=== PATIENT | female | born 1960 | race Caucasian/White ===

== ENCOUNTER 2025-01-11 04:58 | Observation (INO) | payer OTHER ==
[2025-01-11] VITALS (11 sets, daily range): BP systolic 128–172; BP diastolic 56–90
[~2025-01-11] VITALS: Ht 160 cm; Wt 76.8 kg
[2025-01-11] MEDS ORDERED: AMLODIPINE BESYL5 MG PO (06:46)
[2025-01-11] MEDS ORDERED: OMEP20ER PO (06:46)
[2025-01-11] MEDS ORDERED: METO100ER PO (06:46)
[2025-01-11] MEDS ORDERED: EZETIMIBE10 M6 PO (06:46)
[2025-01-11] MEDS ORDERED: ISOSORBIDE MONO30 MG (06:46)
[2025-01-11] MEDS ORDERED: NITROGLYCERIN0.4 M3 SL (06:47)
[2025-01-11] MEDS ORDERED: REPATHA SU140 MG/1 M SC (06:50)
[2025-01-11] MEDS ORDERED: ASPI81CH PO (06:51)
[2025-01-11] MEDS ORDERED: LEVSOD137 PO (06:52)
[2025-01-11] MEDS ORDERED: FENO160 PO (06:53)
[2025-01-11] MEDS ORDERED: Lactated Ringer's 1,000 ML IV SCH (07:00)
[2025-01-11] MEDS ORDERED: Ondansetron HCl 2 MG / ML 2ML Vial IV PRN (07:05)
[2025-01-11] MEDS ORDERED: Nitroglycerin 0.4 MG SUBL SL PRN (07:05)
[2025-01-11] MEDS ORDERED: Acetaminophen 325 MG TABLET PO PRN (07:05)
[2025-01-11 07:19] LABS: BASOPHILS ABSOLUTE AUTO 0.11 K/mm3 (0.00-0.23); BASOPHILS PERCENT AUTO 1 % (0-2); EOSINOPHILS ABSOLUTE AUTO 0.22 K/mm3 (0.00-0.68); EOSINOPHILS PERCENT AUTO 3 % (0-6); Hematocrit 40.1 % (33.0-51.0); Hemoglobin 13.2 g/dL (11.5-16.0); IMMATURE GRAN ABSOLUTE AUTO 0.14 K/mm3 (0.00-0.10); IMMATURE GRAN PERCENT AUTO 2 % (0-1); LYMPHOCYTES ABSOLUTE AUTO 2.22 K/mm3 (0.84-5.20); LYMPHOCYTES PERCENT AUTO 27 % (21-46); MONOCYTES ABSOLUTE AUTO 0.83 K/mm3 (0.16-1.47); MONOCYTES PERCENT AUTO 10 % (4-13); Mean Corpuscular HGB 28.2 pg (26.0-34.0); Mean Corpuscular HGB Conc 32.9 g/dL (31.5-36.5); Mean Corpuscular Volume 86 fL (80-100); Mean Platelet Volume 9.2 fL (9.1-12.4); NEUTROPHILS ABSOLUTE AUTO 4.81 K/mm3 (1.96-9.15); NEUTROPHILS PERCENT AUTO 58 % (41-73); Platelet Count 264 K/mm3 (150-400); RDW Coefficient Variation 12.5 % (11.7-14.2); RDW Standard Deviation 38.8 fL (35.1-46.3); Red Blood Cell Count 4.68 M/mm3 (3.80-5.20); White Blood Cell Count 8.33 K/mm3 (4.00-11.30)
[2025-01-11] MEDS ORDERED: METOPROLOL TART5010 PO (07:25)
[2025-01-11 07:48] LABS: Alanine Aminotransfer (ALT/SGP 25 U/L (12-78); Albumin, Blood 3.8 g/dL (3.4-5.0); Albumin/Globulin Ratio 1.2 (0.8-1.8); Alk Phos 89 U/L (50-136); Anion Gap 10 mmol/L (3-11); Aspartate Aminotrans (AST/SGOT 15 U/L (12-37); Bilirubin, Total 0.2 mg/dL (0.1-1.0); Blood Urea Nitrogen 19 mg/dL (8-24); Bun/Creatinine Ratio 25.6 (12.0-20.0); CHOL/HDL RATIO 3.1; CO2, Blood 24 mmol/L (21-32); Calcium, Blood 9.1 mg/dL (8.5-10.1); Chloride, Blood 111 mmol/L (98-108); Cholesterol 138 mg/dL (50-200); Creatinine, Blood 0.74 mg/dL (0.40-1.00); Globulin, Blood 3.1 g/dL (2.2-4.0); Glomerular Filtration Rate 90 (60-); Glucose, Blood 119 mg/dL (70-99); HDL Cholesterol 45 mg/dL (>39); LDL/HDL RATIO 1.6; Low Density Lipoprotein Chol 71 mg/dL (0-110); Magnesium, Blood 2.2 mg/dL (1.6-2.4); Potassium, Blood 4.5 mmol/L (3.5-5.5); Sodium, Blood 140 mmol/L (136-145); Thyroid Stimulating Hormone 0.117 uIU/mL (0.360-4.800); Total Protein, Blood 6.9 g/dL (6.4-8.2); Triglycerides 112 mg/dL (30-160); Very Low Density Lipoprot Chol 22 mg/dL (6-32)
[2025-01-11] MEDS ORDERED: Enoxaparin 40 MG/0.4 ML SYR SC SCH (09:00)
[2025-01-11] MEDS ORDERED: Ezetimibe 10 MG Tab PO SCH (09:00)
[2025-01-11] MEDS ORDERED: Metoprolol Tartrate 25 MG Tab PO SCH (09:00)
[2025-01-11] MEDS ORDERED: Aspirin 81 MG Chew PO SCH (09:00)
[2025-01-11] MEDS ORDERED: Metoprolol Succinate 50 MG TABCR PO SCH (11:00)
[2025-01-11] MEDS ORDERED: Fenofibrate, Micronized 134 MG Capsule PO SCH (11:08)
[2025-01-11 12:04] LABS: Free Thyroxine 1.2 ng/dL (0.70-1.60); Triiodothyronine, Free 2.56 pg/mL (2.18-3.98)
[2025-01-11] MEDS ORDERED: Regadenoson 0.4 MG/5 ML SYRINGE ONE (13:10)
[2025-01-11] MEDS ORDERED: Caffeine Citrated 60 MG/3 ML Vial ONE (13:10)
[2025-01-11] MEDS ORDERED: Heparin Sodium 1000 Units/ML 10ML MDV ONE (14:25)
[2025-01-11] MEDS ORDERED: Verapamil HCL 2.5 MG/ML 2ML Injection ONE (14:25)
[2025-01-11] MEDS ORDERED: NS 250 ML IV ONE (14:25)
[2025-01-11] MEDS ORDERED: NS 1,000 ML IV ONE ×2 (14:25→14:31)
[2025-01-11] MEDS ORDERED: Nitroglycerin 2 MG/20 ML BTL ONE (14:26)
[2025-01-11] MEDS ORDERED: FentaNYL Citrate 50 MCG/ML 2 ML Injection ONE (14:30)
[2025-01-11] MEDS ORDERED: Midazolam HCl 1MG / ML 2ML Vial ONE (14:30)
[2025-01-11] MEDS ORDERED: Ondansetron HCl 2 MG / ML 2ML Vial ONE ×2 (15:19→16:21)
[2025-01-11] MEDS ORDERED: Atropine Sulfate 0.1 MG/ML 10ML SYR ONE (15:23)
[2025-01-11] MEDS ORDERED: Tirofiban HCL Monohydrate 3.75 MG/15 ML Vial ONE (15:36)
[2025-01-11] MEDS ORDERED: Phenylephrine HCl 100 MCG/ML-NS 10MLSYR (1MG/10ML) ONE (16:04)
[2025-01-11] MEDS ORDERED: Clopidogrel Bisulfate 300 MG TABLET ONE (16:21)
[2025-01-11] MEDS ORDERED: Prochlorperazine Edisylate 10 mg Vial IV PRN (17:20)
--- NOTE | 2025-01-11 17:43 | NUR ---
ASSUMED CARE AT 0700. DIRECT ADMIT FROM GIAN. DENIES CP OR SOB, HYPERTENSIVE, MEDICATED PER EMAR. ECHO COMPLETED WITH STRESS TEST STARTED, STRESS TEST DISCOUNTINUED SHORTLY AFTER INTIATION. DR. GREENFIELD AT BEDSIDE TO DISCUSS ANGIO GRAM. TAKEN TO ORE MIXER. RETURNS TO ROOM WITH LEFT TR BAND IN PLACE, TR MONITORING PER ORDERS. VSS, NAUSEA TREATED PER EMAR. RESTING COMFORTABLY, DENIES CP OR SOB. SBA IN ROOM AND REPOSITIONS SELF ON BED. WILL CONTINUE TO MONITOR AND TREAT UNTIL REPORT GIVEN TO ONCOMING NOC SHIFT RN.
[2025-01-12 04:00] VITALS: BP 136/69
[2025-01-12 04:14] LABS: Hematocrit 39.8 % (33.0-51.0); Mean Corpuscular HGB 27.6 pg (26.0-34.0); Mean Corpuscular HGB Conc 32.7 g/dL (31.5-36.5); Mean Corpuscular Volume 85 fL (80-100); Mean Platelet Volume 9.1 fL (9.1-12.4); Platelet Count 244 K/mm3 (150-400); RDW Coefficient Variation 12.3 % (11.7-14.2); RDW Standard Deviation 37.2 fL (35.1-46.3); Red Blood Cell Count 4.71 M/mm3 (3.80-5.20); White Blood Cell Count 8.81 K/mm3 (4.00-11.30)
--- NOTE | 2025-01-12 04:48 | NUR ---
SHIFT SUMMARY PATIENT ALERT AND ORIENTED X4. HAD NO COMPLAINTS OF PAIN OR SHORTNESS OF BREATH. TENDERNESS REPORTED AT ANGIOGRAM SITE, AREA REMAINS FREE OF SWELLING, BRUSING AND OTHER SIGNS OF BLEEDING. ON ROOM AIR WITH SPO2 >90%. VITAL SIGNS STABLE. NO ACUTE ISSUES NOTED OVERNIGHT. WILL CONTINUE TO MONITOR. CALL LIGHT WITHIN REACH.
[2025-01-12 05:18] LABS: Calcium, Blood 8.8 mg/dL (8.5-10.1); Creatinine, Blood 0.75 mg/dL (0.40-1.00); Potassium, Blood 4.1 mmol/L (3.5-5.5)
[2025-01-12] MEDS ORDERED: Omeprazole 20 MG CapCR PO SCH (06:00)
[2025-01-12] MEDS ORDERED: Levothyroxine Sodium 0.137 MG Tab PO SCH (06:00)
[2025-01-12] MEDS ORDERED: Clopidogrel Bisulfate 75 MG Tab PO SCH (09:00)
--- NOTE | 2025-01-12 09:13 | NUR ---
Bedside rounding with Dr. Wang at this time. Pt states she feels 100% better and is ready for discharge. Dr. Allen was also here 15 minutes ago and said pt is ready for discharge from his standpoint.
[2025-01-12] MEDS ORDERED: CLOP75 PO (11:50)
[2025-01-12 12:04] VITALS: BP 152/78
[2025-01-12 12:10] VITALS: BP 152/78
--- NOTE | 2025-01-12 12:56 | NUR ---
Pt was discharged at 1210. She was provided with contact information for PCP office to schedule a follow up visit, and recommendations regarding cardiology follow up. Pt was given packets regarding dietary and activity recommendations, and aftercare of a coronary angio and radial aftercare. List of home medications was included, and the addition of plavix was highlighted. Pt expressed no further questions or concerns regarding home care or follow up.
== END 2025-01-12 12:31 | disposition home or self-care (01) ==
LOC: PCU 04:58
PROVIDERS: Internal Medicine; ADMIT Student in an Organized Health Care Education/Training Program
DX: I21.4 Non-ST elevation (NSTEMI) myocardial infarction (principal); I25.110 Atherosclerotic heart disease of native coronary artery with unstable angina pectoris; I10 Essential (primary) hypertension; E03.9 Hypothyroidism, unspecified; E78.5 Hyperlipidemia, unspecified; Z95.1 Presence of aortocoronary bypass graft; Z88.7 Allergy status to serum and vaccine; Z88.8 Allergy status to other drugs, medicaments and biological substances; Z88.5 Allergy status to narcotic agent; Z79.82 Long term (current) use of aspirin
CPT/HCPCS: 36415; 76937; 80048; 80053; 80061; 82947; 83036; 83735; 84439; 84443; 84481; 84484; 85025; 85027; 85347; 92920; 93017; 93306; 93455; 96372; 99152; 99153; A9270; C1725; C1769; C1874; C1887; C1894; C9600; G0378; J0461; J0706; J1644; J1650; J2250; J2371; J2405; J2785; J3010; J3246; J7030; J7050; J7120; Q9967